=== PATIENT | male | born 1975 | race African-American/Black ===

== ENCOUNTER 2023-11-11 15:32 | Emergency (ER) | payer SELFPAY ==
[2023-11-11] MEDS: Bacitracin Oint 1 GM U/D Packet TOP ONE (17:02)
[2023-11-11] MEDS: Lidocaine 1% 5 ML VIAL INJECT ONE (17:02)
== END 2023-11-11 17:50 | disposition home or self-care (01) ==
LOC: JP.ED 15:32
DX: S61.215A Laceration without foreign body of left ring finger without damage to nail, initial encounter (principal); F17.210 Nicotine dependence, cigarettes, uncomplicated; W26.8XXA Contact with other sharp object(s), not elsewhere classified, initial encounter
CPT/HCPCS: 12001; 99282